=== PATIENT | male | born 1960 | race Caucasian/White ===

== ENCOUNTER 2020-11-15 19:53 | Observation (INO) | payer MEDICARE, MEDICAID ==
[~2020-11-15] VITALS: Ht 180.3 cm; Wt 130.2 kg
[~2020-11-15 19:53] MED LIST: ALBUTEROL2.5 MG/3 M INH; BREO ELLIPTA 21 EACH INH; DALIRESP500 MCG PO; DUONEBS; FLEXERIL 10 MG10 MG PO; FLOMAX0.4 MG PO; GLUCOPHAGE1000 MG PO; INCRUSE ELLI62.5 MCG INH; IPRAT-ALBUT 0.5-3 ML INH; IPRATROPIU0.2 MG/1 M INH; JANUVIA100 MG PO; LANTUS100 UNIT/1 SQ; LEVAQUIN500 MG PO; MEDROL4 MG PO; MIRAPEX1 MG PO; NORCO 5-325 TA1 EACH PO; NORVASC 5 MG TAB5 MG PO; PRINIVIL20 MG PO; SILDENAFIL SL; SINGULAIR10 MG PO; SPIRIVA RESPIMAT4 GM INH; SYNTHROID175 MCG PO; THERAGRAN M TAB1 EA PO; VENTOLIN HFA 66.7 GM INH; XOPENEX HFA15 GM INH
[2020-11-15 21:28] LABS: HEMOGLOBIN 13.6 gm/dl (14.0-17.5); RED BLOOD COUNT 4.53 M/UL (4.20-5.50); WHITE BLOOD COUNT 10.2 K/UL (4.5-11.0)
[2020-11-15 22:05] LABS: BUN/CREATININE RATIO 11 (0-10)
[2020-11-16] MEDS ORDERED: BREO ELLIPTA 21 EACH INH (05:00)
[2020-11-16] MEDS ORDERED: MIRAPEX1 MG PO (05:02)
[2020-11-16] MEDS ORDERED: MIRAPEX0.5 MG PO (05:02)
[2020-11-16] MEDS ORDERED: GABAPENTIN400 MG PO (05:03)
[2020-11-16] MEDS ORDERED: TAMSULOSIN HCL0.4 MG PO (05:04)
[2020-11-16] MEDS ORDERED: SINGULAIR10 MG PO (05:04)
[2020-11-16] MEDS ORDERED: HYDROCODON-ACE1 EAC2 PO (05:05)
[2020-11-16] MEDS ORDERED: VENTOLIN HFA 66.7 GM INH (05:06)
[2020-11-16] MEDS ORDERED: SPIRIVA18 MCG INH (05:08)
[2020-11-16] MEDS ORDERED: MUCINEX600 MG PO (05:10)
[2020-11-16] MEDS ORDERED: SUDAFED 30 MG T30 MG PO (05:11)
[2020-11-16] MEDS ORDERED: PREDNISONE 10 M10 MG PO (05:12)
[2020-11-16] MEDS ORDERED: HYDROCHLOROTHIA25 MG PO (05:12)
[2020-11-16] MEDS ORDERED: METFORMIN HCL1000 MG PO (05:13)
[2020-11-16] MEDS ORDERED: AMOX TR-K CLV1 EAC4 PO (05:14)
[2020-11-16] MEDS ORDERED: BREATHE RIGHT1 EACH TP (05:14)
[2020-11-17 05:24] LABS: HEMOGLOBIN 13.8 gm/dl (14.0-17.5); RED BLOOD COUNT 4.6 M/UL (4.20-5.50)
[2020-11-17 05:25] LABS: WHITE BLOOD COUNT 15.6 K/UL (4.5-11.0)
[2020-11-17 05:36] LABS: BUN/CREATININE RATIO 12 (0-10)
[2020-11-18 06:21] LABS: HEMOGLOBIN 13.3 gm/dl (14.0-17.5); RED BLOOD COUNT 4.46 M/UL (4.20-5.50)
[2020-11-18 06:22] LABS: WHITE BLOOD COUNT 24.7 K/UL (4.5-11.0)
[2020-11-18 06:46] LABS: BUN/CREATININE RATIO 14 (0-10)
[2020-11-18 11:17] LABS: CORTISOL 11.3 ug/dL (.)
[2020-11-18] MEDS ORDERED: IPRAT-ALBUT 0.5-3 ML NEB (11:47)
[2020-11-18] MEDS ORDERED: SODIUM CHLORIDE1 G1 PO (11:47)
[2020-11-18] MEDS ORDERED: LEVOTHYROXINE100 MCG PO (11:47)
[2020-11-18] MEDS ORDERED: LASIX40 MG PO (11:47)
[2020-11-18] MEDS ORDERED: DOXYCYCLINE HY100 MG PO (11:47)
== END 2020-11-18 11:18 | disposition home or self-care (01) ==
LOC: ER1 19:53 → MED SURG 4 11-16 02:36 → CDU 11-16 02:36 → MED SURG 4 11-16 04:55
PROVIDERS: Emergency Medicine; Internal Medicine; Physician Assistant; ADMIT Internal Medicine
DX: E03.9 Hypothyroidism, unspecified (principal); E87.1 Hypo-osmolality and hyponatremia; J44.1 Chronic obstructive pulmonary disease with (acute) exacerbation; J44.0 Chronic obstructive pulmonary disease with (acute) lower respiratory infection; J18.9 Pneumonia, unspecified organism; E11.9 Type 2 diabetes mellitus without complications; E87.70 Fluid overload, unspecified; G25.81 Restless legs syndrome; I11.0 Hypertensive heart disease with heart failure; I50.30 Unspecified diastolic (congestive) heart failure; E78.5 Hyperlipidemia, unspecified; G93.41 Metabolic encephalopathy; G47.33 Obstructive sleep apnea (adult) (pediatric); E66.01 Morbid (severe) obesity due to excess calories; Z68.41 Body mass index [BMI] 40.0-44.9, adult; Z20.822 Contact with and (suspected) exposure to COVID-19; Z91.14 Patient's other noncompliance with medication regimen; Z79.84 Long term (current) use of oral hypoglycemic drugs; Z79.899 Other long term (current) drug therapy; Z88.6 Allergy status to analgesic agent
CPT/HCPCS: ECHO; 0240U; 36415; 36600; 70450; 70551; 71045; 71250; 80053; 80307; 81001; 82140; 82436; 82533; 82550; 82553; 82570; 82803; 82962; 83605; 83690; 83735; 83874; 83880; 84100; 84133; 84156; 84300; 84439; 84443; 84481; 84484; 85025; 86140; 87040; 87086; 93005; 93306; 93880; 94640; 94664; 94760; 96372; 96374; 96375; 96376; 97116-GP-CQ; 97162; 99285; G0378; J0696; J1650; J1940; J2405; J2930